=== PATIENT | male | born 1980 | race Two or more races ===

== ENCOUNTER 2018-10-28 08:51 | Emergency (ER) | payer MEDICAID, OTHER ==
[~2018-10-28] VITALS: Ht 162.6 cm; Wt 65.0 kg
[~2018-10-28 08:51] MED LIST: OMEP20TA5 PO; PANT-47 PO; SUCR1TAB PO
[2018-10-28 08:55] VITALS: BP 126/80
[2018-10-28] MEDS ORDERED: IBUP-1984 PO (09:07)
[2018-10-28] MEDS ORDERED: CLIN-96 PO (09:07)
[2018-10-28] MEDS ORDERED: HYDR-4353 PO (09:07)
== END 2018-10-28 09:16 | disposition home or self-care (01) ==
LOC: ER 08:51
DX: K02.9 Dental caries, unspecified (principal); R59.1 Generalized enlarged lymph nodes; Z88.0 Allergy status to penicillin; Z79.2 Long term (current) use of antibiotics; Z79.899 Other long term (current) drug therapy
CPT/HCPCS: 99283

== ENCOUNTER 2020-06-07 15:36 | Emergency (ER) | payer MEDICAID ==
[~2020-06-07] VITALS: Ht 162.6 cm; Wt 69.6 kg
[~2020-06-07 15:36] MED LIST changes: +CLIN-97 PO
[2020-06-07 15:57] VITALS: BP 127/77
[2020-06-07] MEDS ORDERED: orphenadrine citrate 60mg/2ml inj. IM ONE (18:55)
[2020-06-07] MEDS ORDERED: HYDROcodone/acetaminophen 10/325mg tab PO ONE (18:55)
[2020-06-07] MEDS ORDERED: ketorolac trometh inj. 60 MG/2 ML VIAL IM ONE (18:55)
[2020-06-07] MEDS ORDERED: HYDR-4353 PO (19:13)
[2020-06-07] MEDS ORDERED: ORPH100T2 PO (19:13)
== END 2020-06-07 20:34 | disposition home or self-care (01) ==
LOC: ER 15:37
DX: M79.602 Pain in left arm (principal); F17.200 Nicotine dependence, unspecified, uncomplicated; Z88.0 Allergy status to penicillin; Z79.899 Other long term (current) drug therapy; Z79.1 Long term (current) use of non-steroidal anti-inflammatories (NSAID)
CPT/HCPCS: 96372; 99284; J1885; J2360

== ENCOUNTER 2025-03-21 08:37 | Emergency (ER) | payer MEDICAID ==
[~2025-03-21] VITALS: Ht 162.6 cm; Wt 55.3 kg
[~2025-03-21 08:37] MED LIST changes: +CLIN-224 PO; -CLIN-97 PO; +OMEP20TA43 PO; -OMEP20TA5 PO; +ORPH100T4 PO
[2025-03-21 08:51] VITALS: TEMP 97.7
--- NOTE | 2025-03-21 08:55 | Physician Documentation ---
History of Present Illness ~ Chief Complaint: Anxiety Stated Complaint: ANXIETY Time Seen by MD: 09:04 Primary Medical Doctor: ADITYA Fontana HPI This 44 yr old male presents to the ER due to anxiety. Notes several panic attacks in the last few days. Was just recently prescribed Lexapro, picked it up yesterday. Notes that the issues are due to job stressors. Medication Reconciliation Allergies: Coded Allergies: Penicillins (Verified Allergy, Unknown, RASH, 03/09/16) Scheduled Clindamycin HCL* (Clindamycin HCL*), 1 CAP PO Q6H Hydroxyzine Hcl* (Atarax*), 1 TAB PO Q8H Omeprazole (Omeprazole), 1 TAB PO DAILY Orphenadrine Citrate (Norflex), 1 TAB PO Q12H PRN Pantoprazole Sodium (PROTONIX tablet), 1 TAB PO DAILY Sucralfate (Sucralfate), 1 TAB PO Q8H Scheduled PRN Lorazepam (Ativan), 1 TAB PO Q12H PRN PRN for anxiety Past Medical History Past Medical History: *GI/HEPATOBILIARY*, Gastritis, *MUSCULOSKELETAL* Past Surgical History: noncontributory Alcohol Use: Rarely Drug Use: none Lives with: Spouse Lives In: Home Occupation: employed Review of Systems ROS As stated above in the HPI, otherwise all systems are reviewed and negative. Physical Exam Vital Signs: Temperature: 97.7, Source: Temporal, Heart Rate: 59, Respiratory Rate: 18, BP: 100/60, Pulse Oximetry: 98, Weight: 55.300 Oxygen Flow Rate: 0 Physical Exam General: Alert, no apparent distress. Neck: Full range of motion. Respiratory: Lungs clear, no respiratory distress. Chest: No accessory muscle use. Cardiovascular: Regular rate and rhythm, no murmurs. Gastrointestinal: Soft, nontender, nondistended. Bowels sounds present. Extremities: Normal range of motion, no deformity. Neurologic: Oriented x4. Psychiatric: Normal mood and affect. Skin: Normal color, warm and dry. No edema, no ecchymosis. Progress Results/Orders Results/Orders Completed Orders - YOSHI BLISS NP Lorazepam Tablet (Ativan Tablet) (03/21/25 08:55) Medications Received in ER Medications (Trade) Dose Ordered Sig/Meagan Route PRN Reason Start Time Stop Time Status Last Admin Dose Admin (Ativan tablet) 1 mg ONCE ONCE PO 03/21/25 08:55 03/21/25 08:56 DC 03/21/25 10:32 1 MG Vital Signs 03/21/25 03/21/25 08:51 10:32 Temp 97.7 Pulse 59 47 Resp 18 18 B/P (MAP) 100/60 114/68 (83) Pulse Ox 98 99 O2 Flow Rate 0 0 Departure Time of Disposition: 11:13 Disposition: 01 HOME / SELF CARE / HOMELESS Impression: Primary Impression: Anxiety Condition: Improved Discharge Instructions: Panic Attack Additional Instructions: Keep taking your lexapro. It will take several weeks to feel marked improvement from this medication. Meanwhile, use the hydroxyzine as needed for anxiety. IF this is ineffective, then try the few tablets of lorazepam you were provided. Followup with your psychiatric care provider. Return if worse. Referrals: NO PRIMARY CARE PROVIDER (PCP) Prescriptions Lorazepam (Ativan) 0.5 Mg Tablet 1 TAB PO Q12H PRN PRN for anxiety for 3 Days, #6 TAB 0 Refills Prov: YOSHI BLISS NP 03/21/25 Hydroxyzine Hcl* (Atarax*) 25 Mg Tablet 1 TAB PO Q8H for anxiety for 10 Days, #30 TAB Prov: YOSHI BLISS NP 03/21/25 Education Educated: Patient Educated regarding: diagnosis, treatment, prognosis, need for follow up Signature Scribe Signature: x Attestation: The note accurately reflects work and decisions made by me.Yoshi Walker NP 03/21/25 08:54 YOSHI BLISS NP Mar 21, 2025 08:55
[2025-03-21 10:32] VITALS: BP 114/68; PULSE 47; RESP 18; O2SAT 99
[2025-03-21] MEDS ORDERED: HYDR-3686 PO (11:14)
[2025-03-21] MEDS ORDERED: LORA-268 PO (11:14)
== END 2025-03-21 11:35 | disposition home or self-care (01) ==
LOC: ER 08:38
DX: F41.9 Anxiety disorder, unspecified (principal); Z88.0 Allergy status to penicillin; Z79.899 Other long term (current) drug therapy; Z56.6 Other physical and mental strain related to work; Z87.19 Personal history of other diseases of the digestive system
CPT/HCPCS: 99284